=== PATIENT | female | born 1945 | race Caucasian/White ===

== ENCOUNTER → 2021-05-01 | Outpatient (CLI) | payer OTHER ==
[~2021-05-01] VITALS: Ht 162.6 cm; Wt 62.6 kg
[~2021-05-01] MED LIST: ASA81BEC PO; CRESTOR10 MG PO; ESTRADIOL1 EAC3; ZYRTEC10 M4 PO
--- NOTE | 2021-05-01 10:36 | P ---
[facility] [place] [address] PROCEDURE REPORT Name: EN ANTHONY Room #: REG ELIZABETH Kevin#: [id number] Admission: 05/01/21 Attend Phys: Paras Suarez Discharge: Date of : 43 Report #: [id number] THIS REPORT FOR: cc: Ashtyn Osman MD, Carrie W. MD McElhinney, Christian C. MD ~ cc: Ashtyn Osman MD DATE OF SERVICE: 05/01/2021 PROCEDURE PERFORMED: Upper endoscopy. HISTORY OF PRESENT ILLNESS: The patient is a 75-year-old female with a history of gastroesophageal reflux, intermittent heartburn symptoms with clearing of her throat frequently. She denies any dysphagia, nausea or vomiting. She has tried Prilosec in the past without much improvement. She has been on Zantac recently with some improvement. Plan is for upper endoscopy. DESCRIPTION OF PROCEDURE: The risks and benefits of the procedure were explained to the patient, those risks including but not limited to bleeding, perforation and the risk of sedation. She understood these risks and gave informed consent. Sedation was given using propofol per Anesthesia. Next, using a standard Olympus upper endoscope, the scope was placed in the patient's mouth and advanced under direct vision through the esophagus, stomach and into the second portion of the duodenum. The larynx was normal in appearance. The upper and mid esophagus were normal. In the distal esophagus at the GE junction, mild grade A erosive esophagitis was noted. Overall, the gastric mucosa was normal. The pylorus was normal and patent. The duodenal bulb, first and second portion were normal. The scope was then withdrawn and the procedure terminated. The patient tolerated the procedure well. IMPRESSION: 1. Mild grade A erosive esophagitis. 2. Otherwise, normal upper endoscopy. RECOMMENDATIONS: 1. We will discuss starting a trial of Protonix 40 mg on a daily basis. 2. We will proceed with colonoscopy next today. Thank you for allowing me to participate in her care. <ELECTRONICALLY SIGNED> By: Paras Hercules MD 05/01/21 1036 [id number] [id number] Paras Hercules MD /nt
--- NOTE | 2021-05-05 13:08 | PATH ---
[facility] [address] [place] [address] PATHOLOGY RPT PROCEDURE Name: MAHNAZ RADFORD Room #: REG ELIZABETH Collins.#: [id number] Admission: 05/01/21 Date of : 43 Discharge: Report #: [id number] Path Case #: [id number] [facility] Accession Number: [id number] . 01 Material submitted: . PART A: cecum - CECAL POLYP PART B: colon - ASCENDING COLON POLYP X2. Modifiers: ascending . 01 Clinical history: . ESOPHAGOGASTRODUODENOSCOPY, COLONOSCOPY HX OF POLYPS, REFLUX GRADE A ESOPHAGITIS, COLON POLYPS . 02 Diagnosis: A. Colonic mucosa (cecal polyp): - Tubular adenoma with moderate chronic inflammation. . B. Colonic mucosa (ascending colon polyps): - Tubular adenoma. . (CORTEZ:jillian; 05/04/2021) [facility] 05/04/20211909 Local . 02 Comment: We find no evidence of high grade dysplasia or of malignancy. (SWK:supervisor power reactor; 05/04/2021) . 02 Electronically signed: . Mark Cleveland MD, Pathologist NPI- [id number] . 01 Gross description: . A. Received in formalin labeled "Mahnaz Radford, cecal polyp" is a shepard-brown mucosal polyp measuring 1.0 x 0.6 x 0.5 cm. The margin is inked and the specimen is bisected. The specimen is submitted entirely in A1. . B. Received in formalin labeled "Shaye Radfordna, ascending colon polyp" is a fragment of shepard-brown soft tissue measuring 0.8 x 0.6 x 0.1 cm. The specimen is submitted entirely in B1. ([facility]; 05/03/2021) [facility] 05/03/2021 08 Local . 02 Pathologist provided ICD-10: D12.0, K52.9, D12.2 . 02 CPT . 969990, 667278 Specimen Comment: A courtesy copy of this report has been sent to [phone], [place] [address] PATHOLOGY RPT PROCEDURE Name: MAHNAZ RADFORD Room #: REG ELIZABETH Brown#: [id number] Admission: 05/01/21 Date of : 43 Discharge: Report #: [id number] Path Case #: [id number] Specimen Comment: [id number] Specimen Comment: Report sent to / DR ABAD Performed at: 01 [facility] [address] [id number] MD Saul Espinal MD Phone: [phone] Performed at: 02 [facility] [address] [id number] MD Mark Cleveland MD Phone: [phone]
--- NOTE | 2021-05-06 09:38 | P ---
[facility] [place] [address] PROCEDURE REPORT Name: EN ANTHONY Room #: REG [facility] Jennie.#: [id number] Admission: 05/01/21 Attend Phys: Paras Suarez Discharge: Date of : 43 Report #: [id number] THIS REPORT FOR: cc: Ashtyn Osman MD, Carrie W. MD McElhinney, Christian C. MD ~ cc: Ashtyn Osman MD DATE OF SERVICE: 05/01/2021 PROCEDURE PERFORMED: Colonoscopy with polypectomies. HISTORY OF PRESENT ILLNESS: The patient is a 75-year-old female presents today for screening colonoscopy. She does have a family history of colon cancer in her mother. She denies any symptoms at this time. DESCRIPTION OF PROCEDURE: The risks and benefits of the procedure were explained to the patient, those risks including but not limited to bleeding, perforation and the risk of sedation. She understood these risks and gave informed consent. Sedation was given using propofol per anesthesia. Next, a digital rectal exam showed external hemorrhoids, otherwise normal. Next, using a standard Olympus colonoscope, the scope was placed in the patient's anus and advanced under direct vision to the cecum. The overall prep was excellent. In the cecum, there was a 7 mm sessile polyp. This was removed by snare cautery, otherwise normal. The ileocecal valve was normal. In the ascending colon, two 4-5 mm sessile polyps were noted, both removed with cold forceps. The transverse, descending and sigmoid colon were normal. The rectal mucosa was normal. On retroflexion, no abnormalities were noted. The scope was then withdrawn and the procedure terminated. The patient tolerated the procedure well. IMPRESSION: 1. Three small colonic polyps. 2. External hemorrhoids. 3. Otherwise, normal colonoscopy. RECOMMENDATIONS: 1. Await biopsy results. 2. Repeat colonoscopy in 5 years. Thank you for allowing me to participate in her care. <ELECTRONICALLY SIGNED> By: Paras Hercules MD 05/06/21 0938 0758 [id number] Paras Hercules MD /nt
== END | disposition home or self-care (01) ==
LOC: GI
PROVIDERS: ATTEND Specialist
DX: Z12.11 Encounter for screening for malignant neoplasm of colon (principal); Z80.0 Family history of malignant neoplasm of digestive organs; D12.0 Benign neoplasm of cecum; D12.2 Benign neoplasm of ascending colon; K64.4 Residual hemorrhoidal skin tags; K22.10 Ulcer of esophagus without bleeding; K21.9 Gastro-esophageal reflux disease without esophagitis; R12 Heartburn; E78.5 Hyperlipidemia, unspecified; Z98.890 Other specified postprocedural states; Z79.899 Other long term (current) drug therapy; Z90.710 Acquired absence of both cervix and uterus; Z86.73 Personal history of transient ischemic attack (TIA), and cerebral infarction without residual deficits; Z88.8 Allergy status to other drugs, medicaments and biological substances
CPT/HCPCS: 62110; 62900